=== PATIENT | female | born 1990 | race Asian ===

== ENCOUNTER 2020-04-20 01:15 | Inpatient (IN) | payer MEDICAID ==
[2020-04-20] MEDS: Lactated Ringers 1,000 ML IV SCH ×2 (18:50→20:00)
[2020-04-20] MEDS ORDERED: Sodium Chloride 0.9% 10 ML SDV IV PRN (19:06)
[2020-04-20] MEDS ORDERED: Nalbuphine 10 MG/1 ML Vial IVPUSH PRN (19:06)
[2020-04-20] MEDS ORDERED: Sodium Chloride 0.9% 2.5 ML Syringe FLUSH PRN (19:06)
[2020-04-20] MEDS ORDERED: Water For Irrigation,Sterile 1,000 ML Container IRR PRN (19:06)
[2020-04-20] MEDS ORDERED: Carboprost Tromethamine 250 MCG/1 ML Amp IM PRN (19:06)
[2020-04-20] MEDS ORDERED: Methylergonovine 0.2 MG/1 ML Amp IM PRN (19:06)
[2020-04-20] MEDS ORDERED: Misoprostol 200 MCG Tab PO PRN (19:06)
[2020-04-20] MEDS ORDERED: Sodium Chloride 0.9% 10 ML Syringe FLUSH PRN (19:06)
[2020-04-20] MEDS ORDERED: Tranexamic Acid 1,000 MG in Sodium Chloride 0.9% 100 ML IV PRN (19:06)
[2020-04-20] MEDS ORDERED: Lidocaine 1% 50 ML MDV INJECT PRN (19:06)
[2020-04-20] MEDS ORDERED: Oxytocin/0.9 % Sodium Chloride 30 UNIT/500 ML BAG IV SCH (19:15)
[2020-04-20 19:53] LABS: BLOOD UREA NITROGEN,BUN 10 mg/dL (7.0-18.0); CARBON DIOXIDE,CO2 20.1 mmol/L (21.0-32.0); CHLORIDE,CL 102 mmol/L (98-107); GLUCOSE RANDOM 155 mg/dL (74-106); SODIUM,NA 137 mmol/L (136-145)
[2020-04-20] MEDS: Oxytocin/0.9 % Sodium Chloride 30 UNIT/500 ML BAG IV SCH (21:12)
[2020-04-20] MEDS ORDERED: Terbutaline 1 MG/ML SDV SUBCUT PRN (21:12)
[2020-04-21] MEDS: Butorphanol 1 MG/ML SDV IVPUSH PRN ×2 (00:51→03:29)
--- NOTE | 2020-04-21 01:56 | PCM.SN.2 ---
- Free Text/Narrative Note: Pt requested education regarding epidural. Bedside at LDR 2 [id number]. Educated regarding epidural alternatives, procedure, risks, benefits, maintenance, anesthesia coverage, and GYMNASTIC COACH. Medical history and physical assessment performed. All questions answered and concerns addressed. Requests that epidural be placed, but at a later time. Pain currently under control and tolerable.
--- NOTE | 2020-04-21 02:14 | PCM.PREANE ---
Preanesthetic Assessment - Procedure Proposed Procedure: SUE for active labor. Consented with RN witness, educated on r isks/benefits/alternatives/procedure, all questions answered and concerns addressed. - Anesthesia/Transfusion/Family Hx Anesthesia History: No Prior Anesthesia (No prior anesthetics or surgeries per patient's recollection) Family History of Anesthesia Reaction: No Transfusion History: No Prior Transfusion(s) Additional History: Patient history significant for gestational diabetes which is well-controlled with insulin at this time, and positive for hepatitis B antigen - Review of Systems General: No Symptoms Pulmonary: No Symptoms Cardiovascular: No Symptoms Gastrointestinal: No Symptoms Neurological: No Symptoms Other: Reports: None - Physical Assessment Height: 1.52 m Weight: 107.048 kg ASA Class: 2 Mental Status: Alert & Oriented x3 Airway Class: Mallampati = 1 Dentition: Reports: Normal Dentition Thyro-Mental Finger Breadths: 2 (habitus presents risk for difficult intubation) Mouth Opening Finger Breadths: 3 ROM/Head Extension: Full Lungs: Normal Respiratory Effort Cardiovascular: Regular Rate, Regular Rhythm - Lab Values: Laboratory Last Values WBC 8.73 K/uL (4.0-11.0) 04/20/20 18:18 RBC 4.12 M/uL (4.30-5.90) L 04/20/20 18:18 Hgb 12.8 g/dL (12.0-16.0) 04/20/20 18:18 Hct 37.5 % (36.0-46.0) 04/20/20 18:18 MCV 91.0 fL (80.0-98.0) 04/20/20 18:18 MCH 31.1 pg (27.0-32.0) 04/20/20 18:18 MCHC 34.1 g/dL (31.0-37.0) 04/20/20 18:18 RDW Std Deviation 42.4 fl (28.0-62.0) 04/20/20 18:18 RDW Coeff of Juventino 13 % (11.0-15.0) 04/20/20 18:18 Plt Count 256 K/uL (150-400) 04/20/20 18:18 MPV 10.30 fL (7.40-12.00) 04/20/20 18:18 Nucleated RBC % 0.0 /100WBC 04/20/20 18:18 Nucleated RBCs # 0 K/uL 04/20/20 18:18 Sodium 137 mmol/L (136-145) 04/20/20 18:18 Potassium 4.0 mmol/L (3.5-5.1) 04/20/20 18:18 Chloride 102 mmol/L (98-107) 04/20/20 18:18 Carbon Dioxide 20.1 mmol/L (21.0-32.0) L 04/20/20 18:18 BUN 10 mg/dL (7.0-18.0) 04/20/20 18:18 Creatinine 0.7 mg/dL (0.6-1.0) 04/20/20 18:18 Est Cr Clr Drug Dosing TNP 04/20/20 18:18 Estimated GFR (MDRD) > 60.0 ml/min 04/20/20 18:18 Glucose 155 mg/dL (74-106) H 04/20/20 18:18 POC Glucose 99 mg/dL (60-110) 04/21/20 01:33 Uric Acid 5.9 mg/dL (2.6-7.2) 04/20/20 18:18 Calcium 9.6 mg/dL (8.5-10.1) 04/20/20 18:18 Total Bilirubin 0.3 mg/dL (0.2-1.0) 04/20/20 18:18 AST 14 IU/L (15-37) L 04/20/20 18:18 ALT 13 IU/L (14-63) L 04/20/20 18:18 Alkaline Phosphatase 177 U/L (46-116) H 04/20/20 18:18 Total Protein 6.4 g/dL (6.4-8.2) 04/20/20 18:18 Albumin 2.7 g/dL (3.4-5.0) L 04/20/20 18:18 Globulin 3.7 g/dL (2.6-4.0) 04/20/20 18:18 Albumin/Globulin Ratio 0.7 (0.9-1.6) L 04/20/20 18:18 Ur Random Creatinine 150.0 mg/dL 04/20/20 21:45 U Random Total Protein 61.5 mg/dL (<11.9) H 04/20/20 21:45 Protein/Creatinin Ratio 0.4 04/20/20 21:45 Blood Type B POSITIVE 04/20/20 18:18 Antibody Screen NEGATIVE 04/20/20 18:18 - Allergies Allergies/Adverse Reactions: Allergies Allergy/AdvReac Type Severity Reaction Status Date / Time No Known Allergies Allergy Verified 04/20/20 19:24 - Acknowledgements Anesthesia Type Planned: Epidural Pt an Appropriate Candidate for the Planned Anesthesia: Yes Alternatives and Risks of Anesthesia Discussed w Pt/Guardian: Yes Pt/Guardian Understands and Agrees with Anesthesia Plan: Yes PreAnesthesia Questionnaire - Past Health History Medical/Surgical History: Denies Medical/Surgical History COATER History: Reports: Other Endocrine/Metabolic History: GDM - Infectious Disease History Other Infectious Disease History: Hep B carrier - low detectable viral load. Heb C carrier - very low detectable viral load - SUBSTANCE USE Tobacco Use Status *Q: Former Tobacco User Tobacco Use Within Last Twelve Months: Cigarettes Recreational Drug Use History: No - HOME MEDS Home Medications: Home Meds Insulin Glarg,Human.Rec.Analog [LantUS] 20 unit SQ ASDIRECTED 04/20/20 [History] - CURRENT (IN HOUSE) MEDS Current Meds: Current Medications Butorphanol Tartrate (Stadol) 1 mg IVPUSH Q1H PRN PRN Reason: Pain Last Admin: 04/21/20 00:51 Dose: 1 mg Documented by: Carboprost Tromethamine (Hemabate Ds) 250 mcg IM ASDIRECTED PRN PRN Reason: Post Hemorrhage Oxytocin/Sodium Chloride (Oxytocin 30 Unit/500 Ml-Ns) 30 unit in 500 mls @ 125 mls/hr IV TITRATE YINA Tranexamic Acid 1,000 mg/ (Sodium Chloride) 110 mls @ 660 mls/hr IV ONETIME PRN PRN Reason: Bleeding Lactated Ringer's (Ringers, Lactated) 1,000 mls @ 150 mls/hr IV ASDIRECTED YINA Last Admin: 04/20/20 20:00 Dose: 150 mls/hr Documented by: Insulin Human Regular 100 unit (/ Sodium Chloride) 100 mls @ 0.5 mls/hr IV TITRATE YINA; Protocol Last Titration: 04/21/20 01:36 Dose: 0.5 unit/hr, 0.5 mls/hr Documented by: Oxytocin/Sodium Chloride (Oxytocin 30 Unit/500 Ml-Ns) 30 unit in 500 mls @ 2 mls/hr IV TITRATE YINA; Protocol Last Titration: 04/21/20 02:03 Dose: 8 munits/min, 8 mls/hr Documented by: Lidocaine HCl (Xylocaine 1%) 50 ml INJECT ONETIME PRN PRN Reason: Laceration repair Methylergonovine Maleate (Methergine) 0.2 mg IM ASDIRECTED PRN PRN Reason: Post Hemorrhage Misoprostol (Cytotec) 200 mcg PO ONETIME PRN PRN Reason: Post Hemorrhage Nalbuphine HCl (Nubain) 10 mg IVPUSH Q1H PRN PRN Reason: Pain (severe 7-10) Sodium Chloride (Saline Flush) 10 ml FLUSH ASDIRECTED PRN PRN Reason: Keep Vein Open Sodium Chloride (Saline Flush) 2.5 ml FLUSH ASDIRECTED PRN PRN Reason: Keep Vein Open Sodium Chloride (Normal Saline) 10 ml IV ASDIRECTED PRN PRN Reason: IV Use Sterile Water (Sterile Water For Irrigation) 1,000 ml IRR ASDIRECTED PRN PRN Reason: delivery Terbutaline Sulfate (Brethine) 0.25 mg SUBCUT ASDIRECTED PRN PRN Reason: Tacysystole
[2020-04-21] MEDS: Lactated Ringers 1,000 ML IV SCH ×4 (02:42→20:02)
[2020-04-21] MEDS ORDERED: fentaNYL 100 MCG/2 ML SDV ONE ×2 (04:22→17:24)
[2020-04-21] MEDS ORDERED: Ropivacaine HCl/PF 100 ML ONE ×2 (04:23→17:24)
--- NOTE | 2020-04-21 05:22 | PCM.SN.2 ---
- Free Text/Narrative Note: Anesthesia time [id number] 0422: Bedside LDR 2 for epidural placement. Pulse ox. and BP monitored, VSS (see EMR/ nursing documentation for VS). Proper PPE and hand washing. 0428: Sitting position, sterile technique, prep. with chlorhexidine. Attempt #1 at L 3-4 met os, attempt #2 with DMITRIY at 7cm, catheter threaded without resistance, but heme noted on aspiration. Catheter removed at 0442 (no test dose given). Attempt #3 successful at L3-4, DMITRIY with saline at 7.5 cm. Catheter threaded without resistance to 15cm at 0454. No paresthesias, negative to aspiration for both CSF and heme. 0455- negative test dose. 0502- bolus of 6ml ropiv./fent., and gtt started. 0.2% ropivicaine with 2mcg/ml fentanyl at 6ml/hr, 4ml AIR BRAKE OPERATOR option every 10min, with 32ml/hr lockout. 0519- re-assessed, pt reports adequate pain control with a level of T9 achieved, VSS.
--- NOTE | 2020-04-21 05:44 | PCM.SN.2 ---
- Free Text/Narrative Note: Bedside LDR 2- pt c/o nausea and vomiting. SBP baseline 120-130's, currently 100's. 200 mcg phenylephrine given IV by CAFETERIA OR LUNCHROOM CHECKER, BP 122/73, HR 80's, nausea relieved. PRN phenylephrine orders given.
[2020-04-21] MEDS: Phenylephrine/Normal Saline 100 MCG/ML 10 ML Syringe IVPUSH PRN ×2 (05:56→06:36)
[2020-04-21] MEDS ORDERED: Dextrose 5%-0.9% NaCl 1,000 ML IV SCH (17:00)
--- NOTE | 2020-04-21 17:33 | PCM.PRNOTE ---
- Free Text/Narrative Note: Anes NOte Epidural infusion is complete. A new 100 cc 0.2% ropivicaine with 1 mcg cc fentanyl added was placed. Rate is 8 cc hr with 6 cc q 20 min prn bolus. Patient reports excellent analgesia. Time with patient [id number] Jv Majano CRNA
[2020-04-22] MEDS: Oxytocin/0.9 % Sodium Chloride 30 UNIT/500 ML BAG IV SCH (00:49)
[2020-04-22] MEDS ORDERED: Ropivacaine HCl/PF 100 ML ONE (00:58)
[2020-04-22] MEDS ORDERED: fentaNYL 100 MCG/2 ML SDV ONE (00:58)
[2020-04-22] MEDS ORDERED: oxyCODONE 5 MG Tab PO PRN (01:43)
[2020-04-22] MEDS ORDERED: Benzocaine/Menthol 20%-0.5% Spray 78 GM Cannister TOP PRN (01:43)
[2020-04-22] MEDS ORDERED: Bisacodyl 10 MG Supp RECTAL PRN (01:43)
[2020-04-22] MEDS ORDERED: Ibuprofen 400 MG Tab PO PRN (01:43)
[2020-04-22] MEDS ORDERED: Lanolin 100% Cream 7 GM Tube TOP PRN (01:43)
--- NOTE | 2020-04-22 01:46 | PCM.OPNOTE ---
<Janett Ahmadi - Last Filed: 04/22/20 01:50> - General Post-Op/Procedure Note Date of Surgery/Procedure: 04/22/20 Operative Procedure(s): Vacuum assisted vaginal delivery. Secondary perineal laceration repair Findings: Viable 3320 female infant delivered by vacuum assisted vaginal delivery, intact placenta, 3 vessel cord APGARS 7 and 9, at 1 and 5 minutes respectively Pre Op Diagnosis: 38/2 week gestation PPROM; GDMA2 and hepatitis B carrier Post-Op Diagnosis: Same Anesthesia Technique: Epidural Primary Surgeon: Jackie Meyers Junior Oracle Dba: Janett Ahmadi (MS4) EBL in mLs: 300 Complications: None known Condition: Good Free Text/Narrative:: Intake & Output 04/21/20 04/21/20 04/22/20 14:59 22:59 06:59 Intake Total 1000 1900 Balance 1000 1900 <Jackie Meyers - Last Filed: 04/22/20 01:58> - General Post-Op/Procedure Note Free Text/Narrative:: Intake & Output 04/21/20 04/21/20 04/22/20 14:59 22:59 06:59 Intake Total 1000 1900 Balance 1000 1900 [id number]
--- NOTE | 2020-04-22 02:48 | OR ---
SURGEON: Jackie Meyers M.D. DATE OF PROCEDURE: 04/22/2020 PREOPERATIVE DIAGNOSES: 1. 38 and 2 weeks' intrauterine . 2. Premature prolonged rupture of membranes. 3. Maternal exhaustion 4. Gestational diabetes. 5. Hepatitis B carrier. POSTOPERATIVE DIAGNOSES: 1. 38 and 2 weeks' intrauterine . 2. Premature prolonged rupture of membranes. 3. Gestational diabetes. 4. Hepatitis B carrier. PROCEDURE: Vacuum-assisted vaginal delivery with second-degree midline laceration. PRIMARY SURGEON: Jackie Meyers MD ANESTHESIA: Epidural. DIRECTOR OF SLOT OPERATIONS: HUSSAIN Castillo ESTIMATED BLOOD LOSS: 300 mL. COMPLICATIONS: None known. FINDINGS: Viable female. scores of 7 at one minute and 9 at five minutes. Weight of 3320 g. Spontaneous delivery, intact placenta, 3-vessel cord. DISPOSITION: nursery, mom in LDRP, stable. PROCEDURE IN DETAIL: Anastasia is a 29-year-old, G1, P0, who presented on the morning of 04/21/2020 with spontaneous rupture of membranes approximately 4 p.m. the day prior. She is group B beta strep negative. Rupture of membranes was confirmed. Her cervix was not favorable at this time. She was initiated on Pitocin augmentation as there was no evidence of active labor. The patient progressed slowly through the day, became increasingly uncomfortable and underwent regional anesthesia. I assumed care at approximately 5 p.m. on the evening of 04/21/2020. At that time, patient had progressed nicely with 7 cm and by shortly after 10 p.m. she had progressed to complete and began pushing efforts. The heart tones remained in the 150s with variability. The patient had no evidence of fever. The patient began pushing efforts shortly after 10 p.m., pushed adequately for over 2 hours. At that time, I was called for evaluation. The patient was found to be +3 station and continued with pushing efforts. Just before 3 hours of pushing efforts, the patient was becoming increasingly tired and she had made minimal change past +3 station at this juncture. Therefore, options were discussed including operative vaginal delivery, continued pushing efforts, or C- section. The patient would like to attempt an operative vaginal delivery in the form of vacuum-assisted vaginal delivery. Risks of procedure have been discussed with she and her including maternal vaginal laceration, trauma, infant's scalp bruising, cephalhematoma, and intracranial bleeding. Once again, the station was +3. Sagittal suture was able to be palpated. The fetus was felt to be EDVIN. The patient is comfortable with her epidural. Therefore between contractions, the vacuum was gently placed along the scalp and with the next contraction was able to insufflate to be in the green zone for pressure and with pushing efforts, was able to deliver 's head. The vacuum was now released. Anterior shoulder, posterior shoulder, remainder of body was delivered. The infant's oropharynx and nares were bulb suctioned. Cord was clamped x2 and cut. was handed off to attending nursery staff. Pressure was applied while the placenta was delivered spontaneously intact. Vigorous fundal uterine massage was then applied while 30 units Pitocin was delivered in 500 mL of IV fluid. Upon inspection of cervix, vaginal sidewalls, perineum, there was a second-degree midline laceration that was repaired using 3- 0 Vicryl in the usual fashion. Hemostasis appeared evident. Uterus remained firm. Sponge, instrument, and needle counts remained correct. The patient will remain in LDRP. Her glucoses have been normal during the labor process. to nursery. Filter Cleaner is aware of hepatitis B carrier status of the mother. EZ FIGUEROA /[id number] MTDD
[2020-04-22] MEDS: Witch Hazel Medicated Pads 40/Jar TOP PRN (05:53)
[2020-04-22 06:20] LABS: CARBON DIOXIDE,CO2 16.4 mmol/L (21.0-32.0); POTASSIUM,K 3.5 mmol/L (3.5-5.1)
--- NOTE | 2020-04-22 08:29 | PCM.PNPP ---
- General Info Date of Service: 04/22/20 Subjective Update: PPD#0 after vacuum assisted vaginal delivery, denies complaint, minimal lochia, working on Functional Status: Reports: Pain Controlled, Tolerating Diet, Ambulating, Urinating - Review of Systems General: Reports: No Symptoms HEENT: Reports: No Symptoms Pulmonary: Reports: No Symptoms Cardiovascular: Reports: No Symptoms Gastrointestinal: Reports: No Symptoms Genitourinary: Reports: No Symptoms Musculoskeletal: Reports: No Symptoms Skin: Reports: No Symptoms Neurological: Reports: No Symptoms Psychiatric: Reports: No Symptoms - General Info Date of Service: 04/22/20 - Patient Data Vital Signs - Most Recent: Last Vital Signs Temp 36.1 C 04/22/20 06:12 Pulse 102 H 04/22/20 06:12 Resp 20 04/22/20 06:12 BP 135/82 04/22/20 06:12 Pulse Ox 97 04/22/20 06:12 Weight - Most Recent: 107.048 kg I&O - Last 24 Hours: Intake & Output 04/21/20 04/22/20 04/22/20 22:59 06:59 14:59 Intake Total 1000 1900 Output Total 300 Balance 1000 1600 Lab Results - Last 24 Hours: Laboratory Results - last 24 hr 04/21/20 04/21/20 04/21/20 Range/Units 09:54 12:05 13:56 Cord VBG pH (7.25-7.45) Cord VBG Base Excess (-10--2) Sodium (136-145) mmol/L Potassium (3.5-5.1) mmol/L Chloride (98-107) mmol/L Carbon Dioxide (21.0-32.0) mmol/L BUN (7.0-18.0) mg/dL Creatinine (0.6-1.0) mg/dL Est Cr Clr Drug Dosing mL/min Estimated GFR (MDRD) ml/min Glucose (74-106) mg/dL POC Glucose 124 H 103 84 (60-110) mg/dL Calcium (8.5-10.1) mg/dL 04/21/20 04/21/20 04/21/20 Range/Units 16:02 18:00 19:56 Cord VBG pH (7.25-7.45) Cord VBG Base Excess (-10--2) Sodium (136-145) mmol/L Potassium (3.5-5.1) mmol/L Chloride (98-107) mmol/L Carbon Dioxide (21.0-32.0) mmol/L BUN (7.0-18.0) mg/dL Creatinine (0.6-1.0) mg/dL Est Cr Clr Drug Dosing mL/min Estimated GFR (MDRD) ml/min Glucose (74-106) mg/dL POC Glucose 107 84 83 (60-110) mg/dL Calcium (8.5-10.1) mg/dL 04/21/20 04/21/20 04/21/20 Range/Units 21:06 22:08 23:05 Cord VBG pH (7.25-7.45) Cord VBG Base Excess (-10--2) Sodium (136-145) mmol/L Potassium (3.5-5.1) mmol/L Chloride (98-107) mmol/L Carbon Dioxide (21.0-32.0) mmol/L BUN (7.0-18.0) mg/dL Creatinine (0.6-1.0) mg/dL Est Cr Clr Drug Dosing mL/min Estimated GFR (MDRD) ml/min Glucose (74-106) mg/dL POC Glucose 92 98 100 (60-110) mg/dL Calcium (8.5-10.1) mg/dL 04/21/20 04/22/20 04/22/20 Range/Units 23:54 01:01 01:15 Cord VBG pH 7.299 (7.25-7.45) Cord VBG Base Excess -11 L (-10--2) Sodium (136-145) mmol/L Potassium (3.5-5.1) mmol/L Chloride (98-107) mmol/L Carbon Dioxide (21.0-32.0) mmol/L BUN (7.0-18.0) mg/dL Creatinine (0.6-1.0) mg/dL Est Cr Clr Drug Dosing mL/min Estimated GFR (MDRD) ml/min Glucose (74-106) mg/dL POC Glucose 105 128 H (60-110) mg/dL Calcium (8.5-10.1) mg/dL 04/22/20 Range/Units 05:30 Cord VBG pH (7.25-7.45) Cord VBG Base Excess (-10--2) Sodium 136 (136-145) mmol/L Potassium 3.5 (3.5-5.1) mmol/L Chloride 105 (98-107) mmol/L Carbon Dioxide 16.4 L (21.0-32.0) mmol/L BUN 12 (7.0-18.0) mg/dL Creatinine 1.1 H (0.6-1.0) mg/dL Est Cr Clr Drug Dosing 53.23 mL/min Estimated GFR (MDRD) 57.9 ml/min Glucose 176 H (74-106) mg/dL POC Glucose (60-110) mg/dL Calcium 8.1 L (8.5-10.1) mg/dL Med Orders - Current: Current Medications Acetaminophen (Tylenol Extra Strength) 500 mg PO Q4H PRN PRN Reason: Pain Acetaminophen (Tylenol Extra Strength) 1,000 mg PO Q4H PRN PRN Reason: Pain Benzocaine/Menthol (Dermoplast Pain Relief 20%-0.5% [place]) 78 gm TOP ASDIRECTED PRN PRN Reason: Perineal Comfort Measure Last Admin: 04/22/20 05:54 Dose: 1 canister Documented by: Bisacodyl (Dulcolax) 10 mg RECTAL ONETIME PRN PRN Reason: Constipation Carboprost Tromethamine (Hemabate Ds) 250 mcg IM ASDIRECTED PRN PRN Reason: Post Hemorrhage Docusate Sodium (Colace) 100 mg PO BID PRN PRN Reason: Constipation Emollient Ointment (Lansinoh Hpa) 0 gm TOP ASDIRECTED PRN PRN Reason: Sore Nipples Oxytocin/Sodium Chloride (Oxytocin 30 Unit/500 Ml-Ns) 30 unit in 500 mls @ 125 mls/hr IV TITRATE YINA Tranexamic Acid 1,000 mg/ (Sodium Chloride) 110 mls @ 660 mls/hr IV ONETIME PRN PRN Reason: Bleeding Lactated Ringer's (Ringers, Lactated) 1,000 mls @ 150 mls/hr IV ASDIRECTED YINA Last Admin: 04/21/20 20:02 Dose: 150 mls/hr Documented by: Oxytocin/Sodium Chloride (Oxytocin 30 Unit/500 Ml-Ns) 30 unit in 500 mls @ 2 mls/hr IV TITRATE YINA; Protocol Last Titration: 04/22/20 01:17 Dose: 999 munits/min, 999 mls/hr Documented by: Dextrose/Sodium Chloride (Dextrose 5%-Normal Saline) 1,000 mls @ 100 mls/hr IV ASDIRECTED YINA Last Admin: 04/21/20 17:00 Dose: 100 mls/hr Documented by: Ibuprofen (Motrin) 400 mg PO Q4H PRN PRN Reason: Pain Ibuprofen (Motrin) 800 mg PO Q6H PRN PRN Reason: Pain Methylergonovine Maleate (Methergine) 0.2 mg IM ASDIRECTED PRN PRN Reason: Post Hemorrhage Oxycodone HCl (Oxycodone) 5 mg PO Q2H PRN PRN Reason: Pain Sodium Chloride (Saline Flush) 10 ml FLUSH ASDIRECTED PRN PRN Reason: Keep Vein Open Sodium Chloride (Saline Flush) 2.5 ml FLUSH ASDIRECTED PRN PRN Reason: Keep Vein Open Sodium Chloride (Normal Saline) 10 ml IV ASDIRECTED PRN PRN Reason: IV Use Sterile Water (Sterile Water For Irrigation) 1,000 ml IRR ASDIRECTED PRN PRN Reason: delivery Last Admin: 04/22/20 01:10 Dose: 1,000 ml Documented [facility]: [facility] 1 pad TOP ASDIRECTED PRN PRN Reason: comfort care Last Admin: 04/22/20 05:53 Dose: 1 tub Documented by: Discontinued Medications Butorphanol Tartrate (Stadol) 1 mg IVPUSH Q1H PRN PRN Reason: Pain Last Admin: 04/21/20 03:29 Dose: 1 mg Documented by: Fentanyl (Sublimaze) Confirm Administered Dose 200 mcg .ROUTE .STK-MED ONE Stop: 04/21/20 04:23 Fentanyl (Sublimaze) Confirm Administered Dose 100 mcg .ROUTE .STK-MED ONE Stop: 04/21/20 17:25 Fentanyl (Sublimaze) Confirm Administered Dose 100 mcg .ROUTE .STK-MED ONE Stop: 04/22/20 00:59 Insulin Human Regular 100 unit (/ Sodium Chloride) 100 mls @ 0.5 mls/hr IV TITRATE [facility]; Protocol Last Titration: 04/21/20 23:56 Dose: 1 unit/hr, 1 mls/hr Documented by: Ropivacaine (Naropin 0.2%) Confirm Administered Dose 100 mls @ as directed .ROUTE .ST-MED ONE Stop: 04/21/20 04:24 Ropivacaine (Naropin 0.2%) Confirm Administered Dose 100 mls @ as directed .ROUTE .ST-MED ONE Stop: 04/21/20 17:25 Ropivacaine (Naropin 0.2%) Confirm Administered Dose 100 mls @ as directed .ROUTE .[facility] ONE Stop: 04/22/20 00:59 Lidocaine HCl (Xylocaine 1%) 50 ml INJECT ONETIME PRN PRN Reason: Laceration repair Misoprostol (Cytotec) 200 mcg PO ONETIME PRN PRN Reason: Post Hemorrhage Nalbuphine HCl (Nubain) 10 mg IVPUSH Q1H PRN PRN Reason: Pain (severe 7-10) Phenylephrine HCl (Phenylephrine In Ns 100 Mcg/Ml) 0.1 mg IVPUSH ASDIRECTED PRN PRN Reason: Hypotension Last Admin: 04/21/20 06:36 Dose: 0.1 mg Documented by: Terbutaline Sulfate (Brethine) 0.25 mg SUBCUT ASDIRECTED PRN PRN Reason: Tacysystole - Infant Interaction Disposition, : in Room with Family Feeding: Breastfed ; Nursed Well Support Person: Significant Other - Recovery Exam Fundal Tone: Firm Fundal Level: At Umbilicus Fundal Placement: Midline Lochia Amount: Scant Lochia Color: Rubra/Red Perineum Description: Edematous Episiotomy/Laceration: Approximated Bladder Status: Voiding - Exam General: Alert, Oriented GI/Abdominal Exam: Soft, Non-Tender, No Organomegaly, No Distention, No Mass, Pelvis Stable, Other (Fundus U-2) Extremities: Normal Inspection, Normal Range of Motion, Non-Tender, Normal Capillary Refill. No: No Pedal Edema (trace) Skin: Warm, Dry, Intact Neurological: No New Focal Deficit Psy/Mental Status: Alert, Normal Affect, Normal Mood - Problem List & Annotations (1) Gestational diabetes mellitus (GDM) in childbirth, insulin controlled SNOMED Code(s): 32698441 Code(s): O24.424 - GESTATIONAL DIABETES IN CHILDBIRTH, INSULIN CONTROLLED Status: Acute Current Visit: Yes (2) Vacuum extraction, delivered, current hospitalization SNOMED Code(s): 114635858 Code(s): O66.5 - ATTEMPTED APPLICATION OF VACUUM EXTRACTOR AND FORCEPS Status: Acute Current Visit: Yes (3) Hepatitis B carrier SNOMED Code(s): 857416750 Code(s): B18.1 - CHRONIC VIRAL HEPATITIS B WITHOUT DELTA-AGENT Status: Acute Current Visit: Yes - Problem List Review Problem List Initiated/Reviewed/Updated: Yes - My Orders Last 24 Hours: My Active Orders 04/21/20 17:00 Dextrose 5%-0.9% NaCl [Dextrose 5%-Normal Saline] 1,000 ml IV ASDIRECTED 04/23/20 08:30 BASIC METABOLIC PANEL,BMP [CHEM] AM - Assessment Assessment:: PPD#0 after vacuum assisted vaginal delivery, gestational diabetes A2 - Plan Plan:: Continue care, check fasting glucose in am.
--- NOTE | 2020-04-22 10:04 | PCM48HPAN ---
Post Anesthesia Note - EVALUATION WITHIN 48HRS OF ANESTHETIC Vital Signs in Normal Range: Yes Patient Participated in Evaluation: Yes Respiratory Function Stable: Yes Airway Patent: Yes Cardiovascular Function Stable: Yes Hydration Status Stable: Yes Pain Control Satisfactory: Yes (Reports 4/10 pain at rest, adequate pain control) Nausea and Vomiting Control Satisfactory: Yes (n/v immediately has since been relieved, taking PO well) Mental Status Recovered: Yes Vital Signs: Last Vital Signs Temp 36.3 C 04/22/20 07:00 Pulse 86 04/22/20 07:00 Resp 14 04/22/20 07:00 BP 113/69 04/22/20 07:00 Pulse Ox 98 04/22/20 07:00 - COMMENTS/OBSERVATIONS Free Text/Narrative:: Ambulating well, full sensory return to BLE
[2020-04-22] MEDS: Ibuprofen 800 MG Tab PO PRN ×2 (11:27→21:25)
[2020-04-22] MEDS: Docusate Sodium 100 MG Cap PO PRN ×2 (11:28→21:24)
--- NOTE | 2020-04-22 18:18 | PCM.SN.2 ---
- Free Text/Narrative Note: Bedside to assess bilateral leg weakness. At AM assessment pt stated she ambulated to bathroom, now clarifies that she is (and has been having) persistent difficulty. Able to lift legs off bed individually, but with considerable effort per patient. Able to visibly flex quadriceps bilaterally. Full sensation present to tactile stimulation. By patient's own description, legs drag while walking and feel heavy to lift. This sensation has neither improved or worsened since delivery and regression of epidural. Mild bilateral groin pain present upon lifting either leg. Denies any pain elsewhere in lower extremities. PT consult to be ordered by OB .
[2020-04-22] MEDS: Acetaminophen 500 MG Tab PO PRN (21:24)
[2020-04-23] MEDS: Acetaminophen 500 MG Tab PO PRN ×3 (04:18→21:08)
[2020-04-23] MEDS: Ibuprofen 800 MG Tab PO PRN ×3 (04:19→21:09)
--- NOTE | 2020-04-23 09:00 | PCM.SN.2 ---
- Free Text/Narrative Note: Pt reassessed for BLE weakness. Neuro checks that had been ordered Q4hrs through night proved unremarkable, with no worsening symptoms and slight improvements. Pt has not yet attempted to walk this morning, but lifts both legs off bed from seated position (right with considerable effort). Pt reports that strength is improved slightly on right, and significantly on left. Bilateral groin pain with movement remains unchanged. Epidural site remains clear of swelling, and free of signs/symptoms of infection.
[2020-04-23 09:52] LABS: BLOOD UREA NITROGEN,BUN 13 mg/dL (7.0-18.0); CARBON DIOXIDE,CO2 20.6 mmol/L (21.0-32.0); CHLORIDE,CL 107 mmol/L (98-107); GLUCOSE RANDOM 104 mg/dL (74-106); POTASSIUM,K 3.6 mmol/L (3.5-5.1); SODIUM,NA 137 mmol/L (136-145)
--- NOTE | 2020-04-23 10:36 | PCM.PNPP ---
- General Info Date of Service: 04/23/20 Subjective Update: Pain is well controlled, is going well and lochia is dissipating. It was noted yesterday after epidural/regional block allowed adequate time to wear off, that patient had weakness to lower extremities as well as numbness. Needed assistance with getting out of bed and ambulating. Right side more affected than left. Denies pain to region. See anesthesia note. Patient feels she has more strength and sensation today, but not completely returned. She did push for about 3 hours. Functional Status: Reports: Pain Controlled, Tolerating Diet, Ambulating (with assist only), Urinating - Review of Systems General: Reports: No Symptoms Pulmonary: Reports: No Symptoms Cardiovascular: Reports: No Symptoms Gastrointestinal: Reports: No Symptoms Genitourinary: Reports: No Symptoms Musculoskeletal: Reports: Back Pain (mild ) Skin: Reports: No Symptoms Neurological: Reports: Numbness (lower extremities, moreso anterior quad area), Difficulty Walking, Weakness, Gait Disturbance (see HPI) Psychiatric: Reports: No Symptoms - General Info Date of Service: 04/23/20 - Patient Data Vital Signs - Most Recent: Last Vital Signs Temp 36.1 C 04/23/20 07:50 Pulse 72 04/23/20 07:50 Resp 18 04/23/20 07:50 BP 110/74 04/23/20 07:50 Pulse Ox 96 04/23/20 07:50 Weight - Most Recent: 107.048 kg Lab Results - Last 24 Hours: Laboratory Results - last 24 hr 04/20/20 04/23/20 04/23/20 Range/Units 18:18 09:12 09:12 Hgb 9.9 L (12.0-16.0) g/dL Hct 29.6 L (36.0-46.0) % Sodium 137 (136-145) mmol/L Potassium 3.6 (3.5-5.1) mmol/L Chloride 107 (98-107) mmol/L Carbon Dioxide 20.6 L (21.0-32.0) mmol/L BUN 13 (7.0-18.0) mg/dL Creatinine 0.8 (0.6-1.0) mg/dL Est Cr Clr Drug Dosing 73.19 mL/min Estimated GFR (MDRD) > 60.0 ml/min Glucose 104 (74-106) mg/dL Calcium 8.4 L (8.5-10.1) mg/dL RPR Non-Reac (Non-Reac) Med Orders - Current: Current Medications Acetaminophen (Tylenol Extra Strength) 500 mg PO Q4H PRN PRN Reason: Pain Last Admin: 04/23/20 04:18 Dose: 500 mg Documented by: Acetaminophen (Tylenol Extra Strength) 1,000 mg PO Q4H PRN PRN Reason: Pain Benzocaine/Menthol (Dermoplast Pain Relief 20%-0.5% [place]) 78 gm TOP ASDIRECTED PRN PRN Reason: Perineal Comfort Measure Last Admin: 04/22/20 05:54 Dose: 1 canister Documented by: Bisacodyl (Dulcolax) 10 mg RECTAL ONETIME PRN PRN Reason: Constipation Carboprost Tromethamine (Hemabate Ds) 250 mcg IM ASDIRECTED PRN PRN Reason: Post Hemorrhage Docusate Sodium (Colace) 100 mg PO BID PRN PRN Reason: Constipation Last Admin: 04/22/20 21:24 Dose: 100 mg Documented by: Emollient Ointment (Lansinoh Hpa) 0 gm TOP ASDIRECTED PRN PRN Reason: Sore Nipples Oxytocin/Sodium Chloride (Oxytocin 30 Unit/500 Ml-Ns) 30 unit in 500 mls @ 125 mls/hr IV TITRATE YINA Tranexamic Acid 1,000 mg/ (Sodium Chloride) 110 mls @ 660 mls/hr IV ONETIME PRN PRN Reason: Bleeding Lactated Ringer's (Ringers, Lactated) 1,000 mls @ 150 mls/hr IV ASDIRECTED YINA Last Admin: 04/21/20 20:02 Dose: 150 mls/hr Documented by: Oxytocin/Sodium Chloride (Oxytocin 30 Unit/500 Ml-Ns) 30 unit in 500 mls @ 2 mls/hr IV TITRATE YINA; Protocol Last Titration: 04/22/20 01:17 Dose: 999 munits/min, 999 mls/hr Documented by: Dextrose/Sodium Chloride (Dextrose 5%-Normal Saline) 1,000 mls @ 100 mls/hr IV ASDIRECTED YINA Last Admin: 04/21/20 17:00 Dose: 100 mls/hr Documented by: Ibuprofen (Motrin) 400 mg PO Q4H PRN PRN Reason: Pain Ibuprofen (Motrin) 800 mg PO Q6H PRN PRN Reason: Pain Last Admin: 04/23/20 04:19 Dose: 800 mg Documented by: Methylergonovine Maleate (Methergine) 0.2 mg IM ASDIRECTED PRN PRN Reason: Post Hemorrhage Oxycodone HCl (Oxycodone) 5 mg PO Q2H PRN PRN Reason: Pain Sodium Chloride (Saline Flush) 10 ml FLUSH ASDIRECTED PRN PRN Reason: Keep Vein Open Sodium Chloride (Saline Flush) 2.5 ml FLUSH ASDIRECTED PRN PRN Reason: Keep Vein Open Sodium Chloride (Normal Saline) 10 ml IV ASDIRECTED PRN PRN Reason: IV Use Sterile Water (Sterile Water For Irrigation) 1,000 ml IRR ASDIRECTED PRN PRN Reason: delivery Last Admin: 04/22/20 01:10 Dose: 1,000 ml Documented by: Rosa Maria Devi) 1 pad TOP ASDIRECTED PRN PRN Reason: comfort care Last Admin: 04/22/20 05:53 Dose: 1 tub Documented by: Discontinued Medications Butorphanol Tartrate (Stadol) 1 mg IVPUSH Q1H PRN PRN Reason: Pain Last Admin: 04/21/20 03:29 Dose: 1 mg Documented by: Fentanyl (Sublimaze) Confirm Administered Dose 200 mcg .ROUTE .STK-MED ONE Stop: 04/21/20 04:23 Last Admin: 04/22/20 13:31 Dose: Not Given Documented by: Fentanyl (Sublimaze) Confirm Administered Dose 100 mcg .ROUTE .STK-MED ONE Stop: 04/21/20 17:25 Last Admin: 04/22/20 13:31 Dose: Not Given Documented by: Fentanyl (Sublimaze) Confirm Administered Dose 100 mcg .ROUTE .STK-MED ONE Stop: 04/22/20 00:59 Last Admin: 04/22/20 13:32 Dose: Not Given Documented by: Insulin Human Regular 100 unit (/ Sodium Chloride) 100 mls @ 0.5 mls/hr IV TITRATE YINA; Protocol Last Titration: 04/21/20 23:56 Dose: 1 unit/hr, 1 mls/hr Documented by: Ropivacaine (Naropin 0.2%) Confirm Administered Dose 100 mls @ as directed .ROUTE .STK-MED ONE Stop: 04/21/20 04:24 Last Admin: 04/22/20 13:31 Dose: Not Given Documented by: Ropivacaine (Naropin 0.2%) Confirm Administered Dose 100 mls @ as directed .ROUTE .STK-MED ONE Stop: 04/21/20 17:25 Last Admin: 04/22/20 13:31 Dose: Not Given Documented by: Ropivacaine (Naropin 0.2%) Confirm Administered Dose 100 mls @ as directed .ROUTE .STK-MED ONE Stop: 04/22/20 00:59 Last Admin: 04/22/20 13:32 Dose: Not Given Documented by: Lidocaine HCl (Xylocaine 1%) 50 ml INJECT ONETIME PRN PRN Reason: Laceration repair Misoprostol (Cytotec) 200 mcg PO ONETIME PRN PRN Reason: Post Hemorrhage Nalbuphine HCl (Nubain) 10 mg IVPUSH Q1H PRN PRN Reason: Pain (severe 7-10) Phenylephrine HCl (Phenylephrine In Ns 100 Mcg/Ml) 0.1 mg IVPUSH ASDIRECTED PRN PRN Reason: Hypotension Last Admin: 04/21/20 06:36 Dose: 0.1 mg Documented by: Terbutaline Sulfate (Brethine) 0.25 mg SUBCUT ASDIRECTED PRN PRN Reason: Tacysystole - Interaction Infant Disposition, : [place] in Room with Family Infant Feeding: Breastfed Infant; Nursed Well Support Person: Significant Other - Recovery Exam Fundal Tone: Firm Fundal Level: At Umbilicus Fundal Placement: Midline Lochia Amount: Small Lochia Color: Rubra/Red Perineum Description: Intact, Minimal Bruising/Swelling Other Perinuem Description: 2nd degree laceration Episiotomy/Laceration: None Bladder Status: Indwelling Catheter in Place Urinary Elimination: Indwelling Catheter - Exam General: Alert, Oriented Neck: Supple Lungs: Normal Respiratory Effort Cardiovascular: Regular Rate, Regular Rhythm GI/Abdominal Exam: Normal Bowel Sounds, Soft, No Distention Extremities: Pedal Edema (2+), Limited Range of Motion (lower extremities). No: Joni's Sign Skin: Warm, Dry, Intact Neurological: Other (Has good strenth along feet--can flex and extend. Has less strength bending and flexing knee and moreso less at the hip. The right side is more affected than the left. She is able to bend all joints tho--just weak. Good pulses and reflexes noted. ) Psy/Mental Status: Alert, Normal Affect, Normal Mood - Problem List & Annotations (1) Gestational diabetes mellitus (GDM) in childbirth, insulin controlled SNOMED Code(s): 66119171 Code(s): O24.424 - GESTATIONAL DIABETES IN CHILDBIRTH, INSULIN CONTROLLED Status: Acute Current Visit: Yes (2) Hepatitis B carrier SNOMED Code(s): 545107265 Code(s): B18.1 - CHRONIC VIRAL HEPATITIS B WITHOUT DELTA-AGENT Status: Acute Current Visit: Yes (3) Vacuum extraction, delivered, current hospitalization SNOMED Code(s): 529895979 Code(s): O66.5 - ATTEMPTED APPLICATION OF VACUUM EXTRACTOR AND FORCEPS Status: Acute Current Visit: Yes (4) Femoral neuropathy of both lower extremities SNOMED Code(s): 17246918 Code(s): G57.23 - LESION OF FEMORAL NERVE, BILATERAL LOWER LIMBS Status: Acute Current Visit: Yes - Problem List Review Problem List Initiated/Reviewed/Updated: Yes - My Orders Last 24 Hours: My Active Orders 04/22/20 17:40 PT Evaluation and Treatment [CONS] Routine 04/23/20 10:14 PT Evaluation and Treatment [CONS] Urgent - Assessment Assessment:: PPD#1 after vacuum assisted vaginal delivery, GDM Suspected femoral neuropathy - Plan Plan:: Labs are reassuring, glucose normal range. VS are stable Patient's symptoms of weakness and numbness along lower extremities are most consistent with a femoral neuropathy. Typically this is transitory. Patient understands she may only attempt ambulation with nursing assist. PT consult made last night. Continue NSAIDs. Anesthesia has seen and evaluated the patient as well. Patient and voice their understanding to findings and plan of care.
[2020-04-23] MEDS: valACYclovir 500 MG Tab PO SCH ×2 (11:50→21:14)
[2020-04-23] MEDS: Docusate Sodium 100 MG Cap PO PRN ×2 (11:51→21:08)
--- NOTE | 2020-04-23 17:37 | PCM.SN.2 ---
- Free Text/Narrative Note: Pt re-evaluated for BLE weakness and sensory changes. PT unavailable until Saturday. 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 Strength slightly improved, yet still requires assistance of gait belt and walker to ambulate short distances. Sensory to tactile stimulation remains present in all BLE dermatomes to [employer] assessment, but patient states she feels numbness that changes in nature (though never worsening) and that legs remain heavy. MRI unavailable on s, STAT CT ordered to r/o epidural hematoma in light of persistent weakness and ample time for regression of epidural. I have been in discussion with Dr. Sol and Dr. Meyers, throughout the day, and are aware of assessment findings and plan..
--- NOTE | 2020-04-23 18:32 | CT ---
INDICATION: Bilateral lower extremity weakness and sensory change status post epidural. TECHNIQUE: Noncontrast CT images were acquired through the thoracic spine. COMPARISON: None. FINDINGS: The thoracic kyphosis is preserved. Vertebral heights are maintained. No acute fracture or spondylolisthesis. No osseous spinal canal or neural foraminal narrowing. No paraspinal hematoma. The visualized lungs are without concerning opacities. IMPRESSION: 1. No acute fracture or spondylolisthesis. 2. No osseous spinal canal or neural foraminal narrowing. No paraspinal hematoma. Please note that all CT scans at this facility use dose modulation, iterative reconstruction, and/or weight-based dosing when appropriate to reduce radiation dose to as low as reasonably achievable. Dictated by Hans Abarca MD @ Apr 24 2020 6:56PM Signed by Dr. Hans Abarca @ Apr 24 2020 8:56PM
--- NOTE | 2020-04-23 18:32 | CT ---
INDICATION: Bilateral lower extremity weakness and sensory change status post epidural. TECHNIQUE: Noncontrast CT images were acquired through the lumbar spine. COMPARISON: None. FINDINGS: The lumbar lordosis is preserved. Vertebral heights maintained. No acute fracture or spondylolisthesis. No paraspinal hematoma. T12-L1 through L4-5: No spinal canal or neural foraminal narrowing. L5-S1: Chronic right L5 pars defect. Left eccentric disc bulging and endplate spondylitic ridging. Mild bilateral facet arthropathy. No spinal canal narrowing. [id number] left without right neural foraminal narrowing. uterus with central areas of density likely reflecting blood products. IMPRESSION: 1. No acute fracture or spondylolisthesis. 2. No significant spinal canal narrowing. 3. At L5-S1, chronic right L5 pars defect. Mild to moderate left neural foraminal narrowing. Please note that all CT scans at this facility use dose modulation, iterative reconstruction, and/or weight-based dosing when appropriate to reduce radiation dose to as low as reasonably achievable. Dictated by Hans Abarca MD @ Apr 24 2020 6:56PM Signed by Dr. Hans Abarca @ Apr 24 2020 9:01PM
[2020-04-24] MEDS: Ibuprofen 800 MG Tab PO PRN ×3 (05:34→21:11)
[2020-04-24] MEDS: Acetaminophen 500 MG Tab PO PRN ×3 (05:35→21:12)
[2020-04-24] MEDS: valACYclovir 500 MG Tab PO SCH ×2 (09:31→21:10)
[2020-04-24] MEDS: Docusate Sodium 100 MG Cap PO PRN ×2 (09:31→21:11)
--- NOTE | 2020-04-24 10:55 | PCM.SN.2 ---
- Free Text/Narrative Note: Continues to make slow progress. Reports increased independence in ambulating, though still requires assistance. Reports relief from sensory anomalies, and increased strength bilat., though still weak (R>L). CT yesterday ruled out perispinal hematoma. PT to consult Saturday.
--- NOTE | 2020-04-24 11:14 | PCM.PNPP ---
- General Info Date of Service: 04/24/20 Subjective Update: Pain is well controlled, is going well and lochia is dissipating. Patient feels she has more strength and sensation today, but not completely returned. She is using a walker to get to the bathroom. - Review of Systems General: Reports: Weakness. Denies: Fever, Fatigue Pulmonary: Denies: Shortness of Breath Cardiovascular: Denies: Chest Pain, Palpitations, Lightheadedness Gastrointestinal: Denies: Abdominal Pain, Nausea, Vomiting Genitourinary: Denies: Flank Pain Musculoskeletal: Reports: Back Pain (mild) Skin: Reports: No Symptoms Neurological: Reports: Numbness, Paresthesia, Difficulty Walking, Gait Disturbance (patient is able to move lower extremities more easily, but still quite weak. ) Psychiatric: Reports: No Symptoms - General Info Date of Service: 04/24/20 - Patient Data Vital Signs - Most Recent: Last Vital Signs Temp 35.9 C L 04/24/20 07:08 Pulse 70 04/24/20 07:08 Resp 17 04/24/20 07:08 BP 131/72 04/24/20 07:08 Pulse Ox 94 L 04/24/20 07:08 Weight - Most Recent: 107.048 kg Med Orders - Current: Current Medications Acetaminophen (Tylenol Extra Strength) 500 mg PO Q4H PRN PRN Reason: Pain Last Admin: 04/24/20 05:35 Dose: 500 mg Documented by: Acetaminophen (Tylenol Extra Strength) 1,000 mg PO Q4H PRN PRN Reason: Pain Last Admin: 04/23/20 11:54 Dose: 1,000 mg Documented by: Benzocaine/Menthol (Dermoplast Pain Relief 20%-0.5% [place]) 78 gm TOP ASDIRECTED PRN PRN Reason: Perineal Comfort Measure Last Admin: 04/22/20 05:54 Dose: 1 canister Documented by: Bisacodyl (Dulcolax) 10 mg RECTAL ONETIME PRN PRN Reason: Constipation Carboprost Tromethamine (Hemabate Ds) 250 mcg IM ASDIRECTED PRN PRN Reason: Post Hemorrhage Docusate Sodium (Colace) 100 mg PO BID PRN PRN Reason: Constipation Last Admin: 04/24/20 09:31 Dose: 100 mg Documented by: Emollient Ointment (Lansinoh Hpa) 0 gm TOP ASDIRECTED PRN PRN Reason: Sore Nipples Oxytocin/Sodium Chloride (Oxytocin 30 Unit/500 Ml-Ns) 30 unit in 500 mls @ 125 mls/hr IV TITRATE YINA Tranexamic Acid 1,000 mg/ (Sodium Chloride) 110 mls @ 660 mls/hr IV ONETIME PRN PRN Reason: Bleeding Lactated Ringer's (Ringers, Lactated) 1,000 mls @ 150 mls/hr IV ASDIRECTED YINA Last Admin: 04/21/20 20:02 Dose: 150 mls/hr Documented by: Oxytocin/Sodium Chloride (Oxytocin 30 Unit/500 Ml-Ns) 30 unit in 500 mls @ 2 mls/hr IV TITRATE YINA; Protocol Last Titration: 04/22/20 01:17 Dose: 999 munits/min, 999 mls/hr Documented by: Dextrose/Sodium Chloride (Dextrose 5%-Normal Saline) 1,000 mls @ 100 mls/hr IV ASDIRECTED [facility] Last Admin: 04/21/20 17:00 Dose: 100 mls/hr Documented by: Ibuprofen (Motrin) 400 mg PO Q4H PRN PRN Reason: Pain Ibuprofen (Motrin) 800 mg PO Q6H PRN PRN Reason: Pain Last Admin: 04/24/20 05:34 Dose: 800 mg Documented by: Methylergonovine Maleate (Methergine) 0.2 mg IM ASDIRECTED PRN PRN Reason: Post Hemorrhage Oxycodone HCl (Oxycodone) 5 mg PO Q2H PRN PRN Reason: Pain Sodium Chloride (Saline Flush) 10 ml FLUSH ASDIRECTED PRN PRN Reason: Keep Vein Open Sodium Chloride (Saline Flush) 2.5 ml FLUSH ASDIRECTED PRN PRN Reason: Keep Vein Open Sodium Chloride (Normal Saline) 10 ml IV ASDIRECTED PRN PRN Reason: IV Use Sterile Water (Sterile Water For Irrigation) 1,000 ml IRR ASDIRECTED PRN PRN Reason: delivery Last Admin: 04/22/20 01:10 Dose: 1,000 ml Documented by: Valacyclovir HCl (Valtrex) 1,000 mg PO BID YINA Last Admin: 04/24/20 09:31 Dose: 1,000 mg Documented by: [place] ([place]) 1 pad TOP ASDIRECTED PRN PRN Reason: comfort care Last Admin: 04/22/20 05:53 Dose: 1 tub Documented by: Discontinued Medications Butorphanol Tartrate (Stadol) 1 mg IVPUSH Q1H PRN PRN Reason: Pain Last Admin: 04/21/20 03:29 Dose: 1 mg Documented by: Fentanyl (Sublimaze) Confirm Administered Dose 200 mcg .ROUTE .STK-MED ONE Stop: 04/21/20 04:23 Last Admin: 04/22/20 13:31 Dose: Not Given Documented by: Fentanyl (Sublimaze) Confirm Administered Dose 100 mcg .ROUTE .STK-MED ONE Stop: 04/21/20 17:25 Last Admin: 04/22/20 13:31 Dose: Not Given Documented by: Fentanyl (Sublimaze) Confirm Administered Dose 100 mcg .ROUTE .STK-MED ONE Stop: 04/22/20 00:59 Last Admin: 04/22/20 13:32 Dose: Not Given Documented by: Insulin Human Regular 100 unit (/ Sodium Chloride) 100 mls @ 0.5 mls/hr IV TITRATE YINA; Protocol Last Titration: 04/21/20 23:56 Dose: 1 unit/hr, 1 mls/hr Documented by: Ropivacaine (Naropin 0.2%) Confirm Administered Dose 100 mls @ as directed .ROUTE .STK-MED ONE Stop: 04/21/20 04:24 Last Admin: 04/22/20 13:31 Dose: Not Given Documented by: Ropivacaine (Naropin 0.2%) Confirm Administered Dose 100 mls @ as directed .ROUTE .STK-MED ONE Stop: 04/21/20 17:25 Last Admin: 04/22/20 13:31 Dose: Not Given Documented by: Ropivacaine (Naropin 0.2%) Confirm Administered Dose 100 mls @ as directed .ROUTE .STK-MED ONE Stop: 04/22/20 00:59 Last Admin: 04/22/20 13:32 Dose: Not Given Documented by: Lidocaine HCl (Xylocaine 1%) 50 ml INJECT ONETIME PRN PRN Reason: Laceration repair Misoprostol (Cytotec) 200 mcg PO ONETIME PRN PRN Reason: Post Hemorrhage Nalbuphine HCl (Nubain) 10 mg IVPUSH Q1H PRN PRN Reason: Pain (severe 7-10) Phenylephrine HCl (Phenylephrine In Ns 100 Mcg/Ml) 0.1 mg IVPUSH ASDIRECTED PRN PRN Reason: Hypotension Last Admin: 04/21/20 06:36 Dose: 0.1 mg Documented by: Terbutaline Sulfate (Brethine) 0.25 mg SUBCUT ASDIRECTED PRN PRN Reason: Tacysystole - Interaction Disposition, : [place] in Room with Family Infant Feeding: Breastfed Infant; Nursed Well Support Person: Significant Other - Recovery Exam Fundal Tone: Firm Fundal Level: 1 Fingerbreadths Below Umbilicus Fundal Placement: Midline Lochia Amount: Scant Lochia Color: Rubra/Red Perineum Description: Other (see below) Other Perinuem Description: 2nd degree laceration Episiotomy/Laceration: Approximated Bladder Status: Voiding Urinary Elimination: Voided - Exam General: Alert, Oriented Lungs: Normal Respiratory Effort Cardiovascular: Regular Rate, Regular Rhythm GI/Abdominal Exam: Normal Bowel Sounds, Soft, Non-Tender Extremities: Pedal Edema (2+). No: Joni's Sign Skin: Warm, Dry, Intact Neurological: Reflexes Equal Bilateral, Other (lower extremities have more sensation to light touch--left is basically normal, right is improving. Has increasing strength along right for ankle and knee flexion/extension. Basically similar to left now. ) Psy/Mental Status: Alert, Normal Affect, Normal Mood - Problem List & Annotations (1) Gestational diabetes mellitus (GDM) in childbirth, insulin controlled SNOMED Code(s): 34500276 Code(s): O24.424 - GESTATIONAL DIABETES IN CHILDBIRTH, INSULIN CONTROLLED Status: Acute Current Visit: Yes (2) Hepatitis B carrier SNOMED Code(s): 357000126 Code(s): B18.1 - CHRONIC VIRAL HEPATITIS B WITHOUT DELTA-AGENT Status: Acute Current Visit: Yes (3) Vacuum extraction, delivered, current hospitalization SNOMED Code(s): 808996734 Code(s): O66.5 - ATTEMPTED APPLICATION OF VACUUM EXTRACTOR AND FORCEPS Status: Acute Current Visit: Yes (4) Femoral neuropathy of both lower extremities SNOMED Code(s): 07382761 Code(s): G57.23 - LESION OF FEMORAL NERVE, BILATERAL LOWER LIMBS Status: Acute Current Visit: Yes - Problem List Review Problem List Initiated/Reviewed/Updated: Yes - My Orders Last 24 Hours: My Active Orders 04/23/20 10:14 PT Evaluation and Treatment [CONS] Urgent 04/23/20 10:45 valACYclovir [Valtrex] 1,000 mg PO BID - Assessment Assessment:: PPD#2 after vacuum assisted vaginal delivery, GDM Suspected femoral neuropathy - Plan Plan:: VS are stable. is going well and lochia is dissipating. Baby is under bili lights today. Patient is ambulating to bathroom with assist and has full control of bladder. PT not available until tomorrow for evaluation. CT of back did not reveal an epidural hematoma. Patient seems to be making neurologic improvements daily. Emphasized need for nursing assistance to ambulate. Continue cares otherwise.
[2020-04-25] MEDS: Ibuprofen 800 MG Tab PO PRN (07:09)
[2020-04-25] MEDS: Acetaminophen 500 MG Tab PO PRN (07:09)
[2020-04-25] MEDS: valACYclovir 500 MG Tab PO SCH (08:56)
[2020-04-25] MEDS: Witch Hazel Medicated Pads 40/Jar TOP PRN (08:57)
--- NOTE | 2020-04-25 09:01 | PCM.PNPP ---
- General Info Date of Service: 04/25/20 Subjective Update: Anastasia is feeling better today, she has been ambulating with assist. She states that her legs feel more normal. Minimal lochia, some stinging on her bottom. Functional Status: Reports: Pain Controlled, Tolerating Diet, Ambulating, Urin ating - Review of Systems General: Reports: No Symptoms HEENT: Reports: No Symptoms Pulmonary: Reports: No Symptoms Cardiovascular: Reports: No Symptoms Gastrointestinal: Reports: No Symptoms Genitourinary: Reports: No Symptoms Musculoskeletal: Reports: No Symptoms Skin: Reports: No Symptoms Neurological: Reports: Gait Disturbance Psychiatric: Reports: No Symptoms - General Info Date of Service: 04/25/20 - Patient Data Vital Signs - Most Recent: Last Vital Signs Temp 36.0 C L 04/25/20 08:44 Pulse 72 04/25/20 08:44 Resp 18 04/25/20 08:44 BP 128/73 04/25/20 08:44 Pulse Ox 97 04/25/20 08:44 Weight - Most Recent: 107.048 kg Med Orders - Current: Current Medications Acetaminophen (Tylenol Extra Strength) 500 mg PO Q4H PRN PRN Reason: Pain Last Admin: 04/25/20 07:09 Dose: 500 mg Documented by: Acetaminophen (Tylenol Extra Strength) 1,000 mg PO Q4H PRN PRN Reason: Pain Last Admin: 04/24/20 14:42 Dose: 1,000 mg Documented by: Benzocaine/Menthol (Dermoplast Pain Relief 20%-0.5% [place]) 78 gm TOP ASDIRECTED PRN PRN Reason: Perineal Comfort Measure Last Admin: 04/22/20 05:54 Dose: 1 canister Documented by: Bisacodyl (Dulcolax) 10 mg RECTAL ONETIME PRN PRN Reason: Constipation Carboprost Tromethamine (Hemabate Ds) 250 mcg IM ASDIRECTED PRN PRN Reason: Post Hemorrhage Docusate Sodium (Colace) 100 mg PO BID PRN PRN Reason: Constipation Last Admin: 04/24/20 21:11 Dose: 100 mg Documented by: Emollient Ointment (Lansinoh Hpa) 0 gm TOP ASDIRECTED PRN PRN Reason: Sore Nipples Last Admin: 04/24/20 14:42 Dose: 7 gram Documented by: Oxytocin/Sodium Chloride (Oxytocin 30 Unit/500 Ml-Ns) 30 unit in 500 mls @ 125 mls/hr IV TITRATE YINA Tranexamic Acid 1,000 mg/ (Sodium Chloride) 110 mls @ 660 mls/hr IV ONETIME PRN PRN Reason: Bleeding Lactated Ringer's (Ringers, Lactated) 1,000 mls @ 150 mls/hr IV ASDIRECTED YINA Last Admin: 04/21/20 20:02 Dose: 150 mls/hr Documented by: Oxytocin/Sodium Chloride (Oxytocin 30 Unit/500 Ml-Ns) 30 unit in 500 mls @ 2 mls/hr IV TITRATE YINA; Protocol Last Titration: 04/22/20 01:17 Dose: 999 munits/min, 999 mls/hr Documented by: Dextrose/Sodium Chloride (Dextrose 5%-Normal Saline) 1,000 mls @ 100 mls/hr IV ASDIRECTED YINA Last Admin: 04/21/20 17:00 Dose: 100 mls/hr Documented by: Ibuprofen (Motrin) 400 mg PO Q4H PRN PRN Reason: Pain Ibuprofen (Motrin) 800 mg PO Q6H PRN PRN Reason: Pain Last Admin: 04/25/20 07:09 Dose: 800 mg Documented by: Methylergonovine Maleate (Methergine) 0.2 mg IM ASDIRECTED PRN PRN Reason: Post Hemorrhage Oxycodone HCl (Oxycodone) 5 mg PO Q2H PRN PRN Reason: Pain Sodium Chloride (Saline Flush) 10 ml FLUSH ASDIRECTED PRN PRN Reason: Keep Vein Open Sodium Chloride (Saline Flush) 2.5 ml FLUSH ASDIRECTED PRN PRN Reason: Keep Vein Open Sodium Chloride (Normal Saline) 10 ml IV ASDIRECTED PRN PRN Reason: IV Use Sterile Water (Sterile Water For Irrigation) 1,000 ml IRR ASDIRECTED PRN PRN Reason: delivery Last Admin: 04/22/20 01:10 Dose: 1,000 ml Documented by: Valacyclovir HCl (Valtrex) 1,000 mg PO BID YINA Last Admin: 04/25/20 08:56 Dose: 1,000 mg Documented by: Rosa Maria Devi) 1 pad TOP ASDIRECTED PRN PRN Reason: comfort care Last Admin: 04/25/20 08:57 Dose: 1 tub Documented by: Discontinued Medications Butorphanol Tartrate (Stadol) 1 mg IVPUSH Q1H PRN PRN Reason: Pain Last Admin: 04/21/20 03:29 Dose: 1 mg Documented by: Fentanyl (Sublimaze) Confirm Administered Dose 200 mcg .ROUTE .STK-MED ONE Stop: 04/21/20 04:23 Last Admin: 04/22/20 13:31 Dose: Not Given Documented by: Fentanyl (Sublimaze) Confirm Administered Dose 100 mcg .ROUTE .STK-MED ONE Stop: 04/21/20 17:25 Last Admin: 04/22/20 13:31 Dose: Not Given Documented by: Fentanyl (Sublimaze) Confirm Administered Dose 100 mcg .ROUTE .STK-MED ONE Stop: 04/22/20 00:59 Last Admin: 04/22/20 13:32 Dose: Not Given Documented by: Insulin Human Regular 100 unit (/ Sodium Chloride) 100 mls @ 0.5 mls/hr IV TITRATE YINA; Protocol Last Titration: 04/21/20 23:56 Dose: 1 unit/hr, 1 mls/hr Documented by: Ropivacaine (Naropin 0.2%) Confirm Administered Dose 100 mls @ as directed .ROUTE .STK-MED ONE Stop: 04/21/20 04:24 Last Admin: 04/22/20 13:31 Dose: Not Given Documented by: Ropivacaine (Naropin 0.2%) Confirm Administered Dose 100 mls @ as directed .ROUTE .STK-MED ONE Stop: 04/21/20 17:25 Last Admin: 04/22/20 13:31 Dose: Not Given Documented by: Ropivacaine (Naropin 0.2%) Confirm Administered Dose 100 mls @ as directed .ROUTE .STK-MED ONE Stop: 04/22/20 00:59 Last Admin: 04/22/20 13:32 Dose: Not Given Documented by: Lidocaine HCl (Xylocaine 1%) 50 ml INJECT ONETIME PRN PRN Reason: Laceration repair Misoprostol (Cytotec) 200 mcg PO ONETIME PRN PRN Reason: Post Hemorrhage Nalbuphine HCl (Nubain) 10 mg IVPUSH Q1H PRN PRN Reason: Pain (severe 7-10) Phenylephrine HCl (Phenylephrine In Ns 100 Mcg/Ml) 0.1 mg IVPUSH ASDIRECTED PRN PRN Reason: Hypotension Last Admin: 04/21/20 06:36 Dose: 0.1 mg Documented by: Terbutaline Sulfate (Brethine) 0.25 mg SUBCUT ASDIRECTED PRN PRN Reason: Tacysystole - Interaction Disposition, : in Room with Family Infant Feeding: Breastfed Infant; Nursed Well Support Person: Significant Other - Recovery Exam Fundal Tone: Firm Fundal Level: 1 Fingerbreadths Below Umbilicus Fundal Placement: Midline Lochia Amount: Scant Lochia Color: Rubra/Red Perineum Description: Edematous Other Perinuem Description: 2nd degree laceration Episiotomy/Laceration: Approximated Bladder Status: Voiding Urinary Elimination: Voided - Exam HEENT: Pupils Equal Lungs: Normal Respiratory Effort GI/Abdominal Exam: Soft, Non-Tender, No Distention Extremities: Normal Range of Motion, Other (strength 2+, equal flexion at hip, extension at knee and ankle). No: No Pedal Edema (1+ equal bilaterally) Neurological: Strength Equal Bilateral - Problem List & Annotations (1) Gestational diabetes mellitus (GDM) in childbirth, insulin controlled SNOMED Code(s): 50751508 Code(s): O24.424 - GESTATIONAL DIABETES IN CHILDBIRTH, INSULIN CONTROLLED Status: Acute Current Visit: Yes (2) Vacuum extraction, delivered, current hospitalization SNOMED Code(s): 605642583 Code(s): O66.5 - ATTEMPTED APPLICATION OF VACUUM EXTRACTOR AND FORCEPS Status: Acute Current Visit: Yes (3) Hepatitis B carrier SNOMED Code(s): 501066598 Code(s): B18.1 - CHRONIC VIRAL HEPATITIS B WITHOUT DELTA-AGENT Status: Acute Current Visit: Yes - Problem List Review Problem List Initiated/Reviewed/Updated: Yes - Assessment Assessment:: PPD#3 after vacuum assisted vaginal delivery, GDM- elevated fasting 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 Discharge precautions reviewed.
== END 2020-04-25 14:50 | disposition home or self-care (01) | DRG 806 ==
LOC: MW.OB 01:15 → OBSVTOIN 04-22 01:15 → MW.OB 04-22 06:00
PROVIDERS: ADMIT Obstetrics & Gynecology; ATTEND Obstetrics & Gynecology
PROC: 3E0R3BZ Introduction of Anesthetic Agent into Spinal Canal, Percutaneous Approach (ICD-10-PCS; 2020-04-21)
PROC: 00HU33Z Insertion of Infusion Device into Spinal Canal, Percutaneous Approach (ICD-10-PCS; 2020-04-21)
PROC: 10D07Z6 Extraction of Products of Conception, Vacuum, Via Natural or Artificial Opening (ICD-10-PCS; principal; 2020-04-22)
PROC: 0KQM0ZZ Repair Perineum Muscle, Open Approach (ICD-10-PCS; 2020-04-22)
PROC: 10H07YZ Insertion of Other Device into Products of Conception, Via Natural or Artificial Opening (ICD-10-PCS; 2020-04-22)
PROC: 4A1HXCZ Monitoring of Products of Conception, Cardiac Rate, External Approach (ICD-10-PCS; 2020-04-22)
PROC: 3E033VJ Introduction of Other Hormone into Peripheral Vein, Percutaneous Approach (ICD-10-PCS; 2020-04-22)
DX: O42.02 Full-term premature rupture of membranes, onset of labor within 24 hours of rupture (principal); B18.0 Chronic viral hepatitis B with delta-agent; Z37.0 Single live birth; O98.42 Viral hepatitis complicating childbirth; O24.424 Gestational diabetes mellitus in childbirth, insulin controlled; Z3A.38 38 weeks gestation of pregnancy; O99.214 Obesity complicating childbirth; E66.9 Obesity, unspecified; O70.1 Second degree perineal laceration during delivery; G57.23 Lesion of femoral nerve, bilateral lower limbs; O99.893 Other specified diseases and conditions complicating puerperium; Z87.891 Personal history of nicotine dependence
CPT/HCPCS: 01967; 36415; 51702; 59025; 59409; 72128; 72128-26; 72131; 72131-26; 80048; 80053; 82570; 82803; 82962; 84156; 84550; 85014; 85018; 85027; 86592; 86850; 86900; 86901; 97161-GP; A9270-GY; J0595; J1815-GY; J2370; J2590; J7042; J7120